=== PATIENT | male | born 1960 | race Caucasian/White ===

== ENCOUNTER 2017-12-27 16:06 | Emergency (ER) | payer OTHER ==
[2017-12-27 16:17] VITALS: BP 129/86
[2017-12-27] MEDS ORDERED: Ibuprofen TAB* 600 MG PO ONE (17:32)
--- NOTE | 2017-12-27 17:48 | UC ---
Arie Hendricks Nilda, scribed for Galina Richardson MD on 12/27/17 at 1727 . Abdominal Pain Male HPI - HPI Summary HPI Summary: This patient is a 57 year old M presenting to [facility] [place] accompanied by with a chief complaint of acute constant severe RLQ abd pain at 3pm that started when he was just finishing a meeting. Pt states the discomfort was intense but has has gradually decreased and is nearly resolved. Pain began after a meeting at 1500. The patient rates the initial pain 7/10 in severity, but it is currently rated 3/10. Symptoms aggravated by nothing and alleviated by walking up stairs and spontaneous resolution. Pt unable to find position of comfort with pain. Patient reports nausea and lower back pain. He denies diaphoresis, pain in penis or testicles, urinary urgency during episode, and hematuria. Pt states he was unable to find a position that alleviated pain. He notes he has not noticed hernia. No analgesi taken Pt notes no pain with BM this morning. He states he passed a little gas earlier. Pt states he ate pasta with asparagus this afternoon. Pt without h/o renal colic - states father had renal colic requiring lithotripsy Patients medication reviewed this visit. - History of Current Complaint Chief Complaint: UCAbdominalPain Stated Complaint: ABD PAIN Time Seen by Provider: 12/27/17 17:12 Hx Obtained From: Patient Onset/Duration: Sudden Onset, Lasting Hours, Still Present Severity Initially: Severe Severity Currently: Mild Pain Intensity: 3 Pain Scale Used: 0-10 Numeric Location: Discrete At: RLQ Aggravating Factor(s): Nothing Alleviating Factor(s): Spontaneous Resolution, Other - walking up stairs Associated Signs And Symptoms: Positive: Other - nausea, and lower back pain. He denies diaphoresis, pain in penis or testicles, urinary urge during episode, and hematuria. - Allergies/Home Medications Allergies/Adverse Reactions: Allergies Allergy/AdvReac Type Severity Reaction Status Date / Time No Known Allergies Allergy Verified 12/27/17 16:16 Home Medications: Home Medications Multivitamin [Multivitamins] 1 cap PO 12/27/17 [History] PMH/Surg Hx/FS Hx/Imm Hx Previously Healthy: Yes - Surgical History Surgical History: Yes Surgery Procedure, Year, and Place: SCLERAL BUCKLE (HAD ORBIT XRAY CLEARED FOR MRI BY RADIOLOGIST)'. Shoulder (rotator cuff) - Family History Known Family History: Positive: Hypertension, Diabetes, Renal Disease - kidney stone - Social History Occupation: Employed Full-time Lives: With Family Alcohol Use: Weekly Substance Use Type: None Smoking Status (MU): Current Some Day Smoker Household Exposure Type: Cigars Review of Systems Constitutional: Negative Skin: Other - negative diaphoresis Gastrointestinal: Abdominal Pain, Nausea Genitourinary: Other - negative pain in penis or testicles, urinary urge during episode, hematuria Musculoskeletal: Other: - lower back pain All Other Systems Reviewed And Are Negative: Yes Physical Exam Triage Information Reviewed: Yes Appearance: Well-Appearing, No Pain Distress, Well-Nourished Vital Signs: Initial Vital Signs Temp 97.9 F 12/27/17 16:13 Pulse 82 12/27/17 16:13 Resp 18 12/27/17 16:13 BP 129/86 12/27/17 16:13 Pulse Ox 98 12/27/17 16:13 Vital Signs Reviewed: Yes Eye Exam: Normal Eyes: Positive: Conjunctiva Clear ENT Exam: Normal ENT: Positive: Normal ENT inspection, Hearing grossly normal, Pharynx normal, TMs normal Dental Exam: Normal Neck exam: Normal Neck: Positive: Supple, Nontender, No Lymphadenopathy Respiratory Exam: Normal Respiratory: Positive: Chest non-tender, Lungs clear, Normal breath sounds, No respiratory distress, No accessory muscle use Cardiovascular Exam: Normal Cardiovascular: Positive: RRR, No Murmur, Pulses Normal Abdomen Description: Positive: No Organomegaly, Soft. Negative: Nontender - very mild diffuse abdominal pain No guarding, no rebound soft +BS No CVA b/l, CVA Tenderness (R), CVA Tenderness (L), Distended, Guarding Musculoskeletal Exam: Normal Musculoskeletal: Positive: Strength Intact, ROM Intact Neurological Exam: Normal Neurological: Positive: Alert Psychological Exam: Normal Psychological: Positive: Normal Response To Family Skin Exam: Normal Diagnostics - Radiology Abd XR Radiology Interpretation Completed By: Radiologist - Abd XR reveals no evidence for acute finding. Dr. Richardson has reviewed this radiology report. Re-Evaluation - Re-Evaluation First Eval Re-Evaluation Time: 18:18 Comment: Reviewed imaging results with pt as well as treatment plan. Abd Pain Male Course/Dx - Course Course Of Treatment: Pt with episode of sudden right LQ pain at 3pm today. Pain was colicky in nature with accompany nausea. No vomiting. No fever, chills. Pain nearly resolved no h.o similar. Pt with stable VS and on concerning exam. Suspect renal colic - pt without hx but father with hx. will check urine and flatplat. motrin. anticipate discharge home withstrainer. hydrate. motrin/apap. f/u with pcp. strict return precautions discussed - Differential Dx/Clinical Impression Provider Diagnoses: abdominal pain, flank pain Discharge - Sign-Out/Discharge Documenting (check all that apply): Discharge - Discharge Plan Condition: Stable Disposition: HOME Patient Education Materials: Acute Abdominal Pain (ED), Flank Pain (ED) Referrals: Anuj Abad MD [Primary Care Provider] - Additional Instructions: The doctor that evaluated you today is not sure the cause of your pain, but as discussed thinks it may likely be related to kidney stones. It is recommended you strain your urine for the next 1-2 days. If you catch a stone, bring it to your doctor for evaluation Stay well hydrated. Drink plenty of non-alcoholic, non-caffinated beverages Okay to take ibuprofen (advil, motrin) 600mg every 6 hours for pain - take with food Contact your doctor to schedule a follow-up appointment this week. If your pain returns, becomes severe, fevers, vomiting, or ANY Other questions or concerns it is recommended you go to the emergency department for futher evaluation and treatment. - Billing Disposition and Condition Condition: STABLE Disposition: HOME The documentation as recorded by the Arie angulo Nilda accurately reflects the service I personally performed and the decisions made by me, Galina Richardson MD.
--- NOTE | 2017-12-27 18:12 | RAD ---
INDICATION: Abdominal pain. COMPARISON: There are no prior studies available for comparison. TECHNIQUE: Supine and upright views of the abdomen were obtained. FINDINGS: The small bowel and colon appear nondistended. No free intraperitoneal air is seen. No abnormal calcifications are seen. IMPRESSION: NO EVIDENCE FOR ACUTE FINDING.
== END 2017-12-27 18:31 | disposition home or self-care (01) ==
LOC: UCEAST 16:06
DX: R10.31 Right lower quadrant pain (principal); M54.5 Low back pain; R11.0 Nausea; Z72.0 Tobacco use
CPT/HCPCS: 74019; 81003; 99212; A9270-GY; G0463

== ENCOUNTER 2019-01-28 10:27 | Emergency (ER) | payer OTHER ==
[2019-01-28 11:14] LABS: ABS Lymphocytes 1.5 10^3/ul (1.0-4.8); ABS Monocytes 0.3 10^3/ul (0-0.8); ABS Neutrophils 2.4 10^3/ul (1.5-7.7); Eosinophil % 0.9 %; Hematocrit 45 % (42-52); Hemoglobin 15.6 g/dL (14.0-18.0); Lymphocyte % 34.7 %; Mean Corpuscular HGB Conc 35 g/dL (31-36); Mean Corpuscular Hemoglobin 31 pg (27-31); Mean Corpuscular Volume 90 fL (80-94); Mean Platelet Volume 8.5 fL (7.4-10.4); Nucleated Red Blood Cells % 0.1; Platelet Count 228 10^3/uL (150-450); Red Blood Count 4.97 10^6 /uL (4.18-5.48); Red Cell Distribution Width 13 % (10.5-15); White Blood Count 4.4 10^3/uL (3.5-10.8)
[2019-01-28 11:33] LABS: Albumin 4.6 g/dL (3.2-5.2); Albumin/Globulin Ratio 1.7 (1-3); BUN/Creatinine Ratio 17.9 (8-20); C Reactive Protein 2.12 mg/L (<8.01); Calcium 9.8 mg/dL (8.6-10.3); EGFR African American 86.2 (>60); EGFR Non-African American 71.3 (>60); Globulin 2.7 g/dL (2-4); Potassium 4.2 mmol/L (3.5-5.0); Total Bilirubin 1.2 mg/dL (0.2-1.0); Total Protein 7.3 g/dL (6.4-8.9)
--- NOTE | 2019-01-28 11:55 | ED ---
Abdominal Pain/Male - HPI Summary HPI Summary: This patient is a 58 year old M presenting to [facility] with a chief complaint of dull aching LLQ abdominal pain with nausea and fatigue for the past week. Pain rated 3/10 upon triage. Patient visited his primary physician who suspects diverticulitis or SBO. He was given flagyl on 01/24/19. Symptoms improved on 01/26 but then returned today. Reports similar symptoms with a previous bout of diverticulitis. Reports frequent urination with increased difficulty. Denies changes to BMs. - History of Current Complaint Chief Complaint: EDAbdPain Stated Complaint: WEAKNESS,LOWER ABD PAIN Time Seen by Provider: 01/28/19 11:44 Hx Obtained From: Patient Onset/Duration: Lasting Days Timing: Constant, Lasting Days Pain Intensity: 3 Pain Scale Used: 0-10 Numeric Location: Discrete At: LLQ Radiates: No Character: Dull Alleviating Factor(s): Nothing Associated Signs And Symptoms: Positive: Urinary Symptoms. Negative: Constipation, Blood in Stool, Diarrhea - Allergies/Home Medications Allergies/Adverse Reactions: Allergies Allergy/AdvReac Type Severity Reaction Status Date / Time No Known Allergies Allergy Verified 12/27/17 16:16 PMH/Surg Hx/FS Hx/Imm Hx Endocrine/Hematology History: Denies: Hx Diabetes Cardiovascular History: Denies: Hx Hypertension, Hx Pacemaker/ICD Respiratory History: Denies: Hx Asthma GI History: Reports: Other GI Disorders - diverticulitis History: Denies: Hx Dialysis, Hx Kidney Stones, Hx Renal Disease Sensory History: Denies: Hx Hearing Aid Psychiatric History: Denies: Hx Panic Disorder - Surgical History Surgery Procedure, Year, and Place: SCLERAL BUCKLE (HAD ORBIT XRAY CLEARED FOR MRI BY RADIOLOGIST)'. Shoulder (rotator cuff) Infectious Disease History: No Infectious Disease History: Denies: Traveled Outside the [place] in Last 30 Days - Family History Known Family History: Positive: Hypertension, Diabetes, Renal Disease - kidney stone - Social History Alcohol Use: Weekly Substance Use Type: Reports: None Smoking Status (MU): Current Some Day Smoker Review of Systems Positive: Fatigue Positive: Abdominal Pain, Nausea. Negative: Diarrhea Positive: frequency, urgency All Other Systems Reviewed And Are Negative: Yes Physical Exam - Summary Physical Exam Summary: Appearance: The patient is well-nourished in no acute distress and in no acute pain. Skin: The skin is warm and dry and skin color reflects adequate perfusion. HEENT: The head is normocephalic and atraumatic. The pupils are equal and reactive. The conjunctivae are clear and without drainage. Nares are patent and without drainage. Mouth reveals moist mucous membranes and the throat is without erythema and exudate. The external ears are intact. The ear canals are patent and without drainage. The tympanic membranes are intact. Neck: The neck is supple with full range of motion and non-tender. There are no carotid bruits. There is no neck vein distension. Respiratory: Chest is non-tender. Lungs are clear to auscultation and breath sounds are symmetrical and equal. Cardiovascular: Heart is regular rate and rhythm. There is no murmur or rub auscultated. There is no peripheral edema and pulses are symmetrical and equal. Abdomen: The abdomen is soft. There is mild LLQ pain. There are normal bowel sounds heard in all four quadrants and there is no organomegaly palpated. Musculoskeletal: There is no back tenderness noted. Extremities are non-tender with full range of motion. There is good capillary refill. There is no peripheral edema or calf tenderness elicited. Neurological: Patient is alert and oriented to person, place and time. The patient has symmetrical motor strength in all four extremities. Cranial nerves are grossly intact. Deep tendon reflexes are symmetrical and equal in all four extremities. Psychiatric: The patient has an appropriate affect and does not exhibit any anxiety or depression Triage Information Reviewed: Yes Vital Signs On Initial Exam: Initial Vitals Temp Pulse Resp BP Pulse Ox 97.8 F 85 18 129/92 96 01/28/19 10:33 01/28/19 10:33 01/28/19 10:33 01/28/19 10:33 01/28/19 10:33 Vital Signs Reviewed: Yes Diagnostics - Vital Signs Vital Signs Temp Pulse Resp BP Pulse Ox 01/28/19 10:33 97.8 F 85 18 129/92 96 - Laboratory Lab Results: Lab Results 01/28/19 01/28/19 01/28/19 Range/Units 11:05 11:05 11:05 WBC 4.4 (3.5-10.8) 10^3/uL RBC 4.97 (4.18-5.48) 10^6 /uL Hgb 15.6 (14.0-18.0) g/dL Hct 45 (42-52) % MCV 90 (80-94) fL MCH 31 (27-31) pg MCHC 35 (31-36) g/dL RDW 13 (10.5-15) % Plt Count 228 (150-450) 10^3/uL MPV 8.5 (7.4-10.4) fL Neut % (Auto) 55.5 % Lymph % (Auto) 34.7 % [place] % (Auto) 8.0 % Eos % (Auto) 0.9 % Baso % (Auto) 0.9 % Absolute Neuts (auto) 2.4 (1.5-7.7) 10^3/ul Absolute Lymphs (auto) 1.5 (1.0-4.8) 10^3/ul Absolute Monos (auto) 0.3 (0-0.8) 10^3/ul Absolute Eos (auto) 0.0 (0-0.6) 10^3/ul Absolute Basos (auto) 0.0 (0-0.2) 10^3/ul Absolute Nucleated RBC 0.0 10^3/ul Nucleated RBC % 0.1 Sodium 136 (135-145) mmol/L Potassium 4.2 (3.5-5.0) mmol/L Chloride 103 (101-111) mmol/L Carbon Dioxide 26 (22-32) mmol/L Anion Gap 7 (2-11) mmol/L BUN 19 (6-24) mg/dL Creatinine 1.06 (0.67-1.17) mg/dL Est GFR ( Amer) 86.2 (>60) Est GFR (Non-Af Amer) 71.3 (>60) BUN/Creatinine Ratio 17.9 (8-20) Glucose 94 (70-100) mg/dL Lactic Acid 1.0 (0.5-2.0) mmol/L Calcium 9.8 (8.6-10.3) mg/dL Total Bilirubin 1.20 H (0.2-1.0) mg/dL AST 72 H (13-39) U/L ALT 98 H (7-52) U/L Alkaline Phosphatase 36 (34-104) U/L C-Reactive Protein 2.12 (<8.01) mg/L Total Protein 7.3 (6.4-8.9) g/dL Albumin 4.6 (3.2-5.2) g/dL Globulin 2.7 (2-4) g/dL Albumin/Globulin Ratio 1.7 (1-3) Lipase 28 (11.0-82.0) U/L Result Diagrams: 01/28/19 11:05 01/28/19 11:05 Lab Statement: Any lab studies that have been ordered have been reviewed, and results considered in the medical decision making process. - CT CT A/P CT Interpretation Completed By: Radiologist Summary of CT Findings: No obstructive uropathy is noted. Enlarged prostate. No hernias are noted. ED Physician has reviewed this report. Abdominal Pain Male Course/Dx - Course Course Of Treatment: Mr. Luke has been battling with left lower quadrant pain for about a week. He was treated with some Flagyl by his PCP. He did seem to get better but then today feels worse again. He had only mild tenderness in the left lower quadrant, was nontoxic in appearance and his vitals were stable. Labs and CT of the abdomen were unremarkable. I recommended continued treatment as he is doing and follow-up with PCP if not improved. - Diagnoses Provider Diagnoses: Abdominal pain Discharge - Sign-Out/Discharge Documenting (check all that apply): Patient Departure - discharge Patient Received Moderate/Deep Sedation with Procedure: No - Discharge Plan Condition: Stable Disposition: HOME Patient Education Materials: Acute Abdominal Pain (ED) Referrals: Anuj Abad MD [Primary Care Provider] - 2 Days Additional Instructions: RETURN TO THE EMERGENCY DEPARTMENT FOR CHANGING OR WORSENING SYMPTOMS. - Billing Disposition and Condition Condition: STABLE Disposition: Home - Attestation Statements Document Initiated by Patience: Yes Documenting Scribe: Margie Green Provider For Whom Patience is Documenting (Include Credential): Silvestre Ospina MD Scribe Attestation: IMargie, scribed for Silvestre Ospina MD on 01/28/19 at 1716. Scribe Documentation Reviewed: Yes Provider Attestation: The documentation as recorded by the Margie angulo accurately reflects the service I personally performed and the decisions made by me, Silvestre Ospina MD Status of Scribe Document: Viewed
[2019-01-28 12:39] LABS: Urine Appearance Clear; Urine Bacteria Absent (Absent); Urine Bilirubin Negative (Negative); Urine Blood Negative (Negative); Urine Color Yellow; Urine Glucose Negative (Negative); Urine Ketones Negative (Negative); Urine Nitrite Negative (Negative); Urine Protein Negative (Negative); Urine Red Blood Cell Trace(0-2/hpf) (Absent); Urine Specific Gravity 1.008 (1.010-1.030); Urine Urobilinogen Negative (Negative); Urine White Blood Cell Trace(0-5/hpf) (Absent)
[2019-01-28 13:49] VITALS: BP 113/37
== END 2019-01-28 13:47 | disposition home or self-care (01) ==
LOC: ED 10:27
DX: R10.32 Left lower quadrant pain (principal); R11.0 Nausea; R53.83 Other fatigue; R35.0 Frequency of micturition; R39.198 Other difficulties with micturition; N40.0 Benign prostatic hyperplasia without lower urinary tract symptoms; Z72.0 Tobacco use
CPT/HCPCS: 36415; 74176; 80053; 81003; 81015; 83605; 83690; 85025; 86140; 87086; 99283

== ENCOUNTER 2019-06-07 20:20 | Emergency (ER) | payer OTHER ==
--- OUTSIDE RECORDS SUMMARY | 2019-06-07 20:26 | XMS REPORT | Continuity of Care Document ---
:1960 External Reference #:[id number] Author Name Shakira Christensen PA-C Address [address] [place] [address] Care Team Providers Name Role Phone Anuj Abad MD Care Team Information [employer] [phone] Problems Active Problems Provider Date Diarrhea Shakira Christensen PA-C Onset: 04/26/2019 Generalized abdominal pain Shakira Christensen PA-C Onset: 04/26/2019 Flatulence, eructation and gas pain Shakira Christensen PA-C Onset: 2018 Social History Type Date Description Comments Sex Unknown Tobacco Use Start: Unknown End: Unknown Patient is a former smoker Smoking Status Reviewed: 04/26/19 Patient is a former smoker Allergies, Adverse Reactions, Alerts Description No Known Drug Allergies Medications Active Medications SIG Qnty Indications Ordering Provider Date Flomax 1 by mouth every Unknown 0.4mg Capsules day History Medications Colyte With Flavor by mouth as 4000ml Jalen Aponte, 02/19/2019 - Packs directed 03/02/2019 240gm Solution Rec Immunizations Description No Information Available Vital Signs Date Vital Result Comment 04/26/2019 8:48am Height 74 inches 6'2" Weight 218.00 lb BMI (Body Mass Index) 28.0 kg/m2 02/19/2019 8:23am Height 74 inches 6'2" Weight 236.00 lb BP Systolic 110 mmHg BP Diastolic 71 mmHg Heart Rate 72 /min BMI (Body Mass Index) 30.3 kg/m2 Results Test Date Facility Test Result H/L Range Note [place] test [place] [facility] [place] SEE RESULT 1 finding Order BELOW Laboratory test 02/22/2019 [facility] [place] SEE RESULT 2 finding BELOW Celiac 2! 02/19/2019 [facility] [place] Immunoglobulin A 168 mg/dL 61 - 356 3 (Iga) Tissue Transglutamianse Iga AB <1.2 U/mL 4 Hepatitis C Antibody 02/19/2019 [facility] [place] Index 0.01 s/c Hepatitis C Antibody Negative Negative Hepatitis [place]NL [place] [place]/19/2019 [facility] [place]atitis A AB Igm Negative Negative 5 Hepatitis B Core AB Igm Nonreactive Nonreactive 6 Hepatitis B Surface Ag Negative Negative 7 Laboratory test finding 02/19/2019 [facility] [place] Inr 0.98 Normal 0.82-1.09 8 Mitochondrial AB AMA M2 Igg <0.1 U 9 Smooth Muscle Antibody Negative Negative 10 Iron & Iron Binding Capacity 02/19/2019 [facility] [place] Iron 97 g/dL Normal 50-212 Unsaturated Iron Binding < 247 g/dL Total Iron Binding Capacity 262 g/dL Normal 250-450 Transferrin 187 mg/dL Low 203-362 % Iron Saturation 37 % Normal 15-55 Laboratory test 02/19/2019 [facility] [place] Alpha 1 Antitrypsin A1a 127 mg/dL 100 - 190 11 finding Anti Nuclear Antibody 0.1 U 12 Ceruloplasmin 27.0 mg/dL 13 Ferritin 265.7 ng/mL Normal 24-336 14 Comp Metabolic Panel 02/19/2019 [facility] [place] Sodium 140 mmol/L Normal 135-145 Potassium 4.9 mmol/L Normal 3.5-5.0 Chloride 103 mmol/L Normal 101-111 Co2 Carbon Dioxide 26 mmol/L Normal 22-32 Anion Gap 11 mmol/L Normal 2-11 Calcium 9.7 mg/dL Normal 8.6-10.3 Albumin 4.6 g/dL Normal 3.2-5.2 Total Bilirubin 1.30 mg/dL High 0.2-1.0 Glucose 95 mg/dL Normal 70-100 Blood Urea Nitrogen 19 mg/dL Normal 6-24 Creatinine 1.08 mg/dL Normal 0.67-1.17 BUN/Creatinine Ratio 17.6 Normal 8-20 Total Protein 7.1 g/dL Normal 6.4-8.9 Globulin 2.5 g/dL Normal 2-4 Albumin/Globulin Ratio 1.8 Normal 1-3 Alkaline Phosphatase 45 U/L Normal 34-104 Alt 44 U/L Normal 7-52 Ast 28 U/L Normal 13-39 Egfr Non- 69.7 >60 Egfr 84.4 >60 15 Xray 01/31/2019 [facility] [place] Pelvic <pending> Xray 01/31/2019 [facility] [place], Abdomen, <pending> Complete (83243) Laboratory test 01/29/2019 [facility] Hepatitis A Igg AB <pending> finding QL Ser Hepatitis B Surf 01/29/2019 [facility] Z#Other <pending> Antigen [address] [address] [phone] Laboratory test 01/29/2019 [facility] Hepatitis B Surf < pending> finding [address] [place] [address] [phone] Hepatitis A Igm QL Serum <pending> Hepatitis C AB Ser QN Eia <pending> Xray 01/28/2019 [facility] [place], Abd & Pelvis W/O Contrast <pending> 1 SEE RESULT BELOW Name: MARCO ANTONIO CROCKETT : [address]: Jalen Aponte DO Acct: [id number] Unit: [id number] AGE: 58 Location: ENDO Re02/22/19 SEX: M Status: DEP REF SPEC: [id number] JULIO C: 02/22/19-[address] [facility] [address]: Jalen Aponte DO REQ: [id number] RECD: 02/22/191399 STATUS: JOLEEN GOODWIN DR: Anuj Abad MD _ ORDERED: LEVEL 4/3 FINAL DIAGNOSIS 1. Small bowel, duodenum, biopsy: -- Small bowel mucosa with normal villous architecture and no significant pathologic abnormality. 2. Distal esophagus, biopsy: -- Gastroesophageal transition zone mucosa with no significant pathologic abnormality. -- No specific features of reflux esophagitis identified. -- No goblet cell/intestinal metaplasia or dysplasia identified. 3. Midesophagus, biopsy: -- Superficial squamous mucosa with no significant pathologic abnormality. -- No evidence of allergic/eosinophilic or reflux esophagitis identified. PRE-OPERATIVE DIAGNOSIS 3) Rule out eosinophilic esophagitis POST-OPERATIVE DIAGNOSIS EGD: esophagus - minimal gastroesophageal junction varices, biopsy; biopsy mid to rule out eosinophilic esophagitis; gastric - normal, biopsy; duodenum - duodenal cyst unknown, biopsy; colonoscopy: to terminal ileum; normal CONTINUED ON NEXT PAGE DEPARTMENT OF PATHOLOGY, [address] [place] [address] David Sotelo M.D. Director [facility] # [id number] RUN DATE: 02/23/19 [facility] LAB LIVE PAGE 2 Patient: SERAKRISTENMARCO ANTONIO [id number] (Continued) GROSS DESCRIPTION (Continued) GROSS DESCRIPTION 1. The specimen is received in formalin labeled, Duodenal Lesion Biopsy, and consists of a 0.3 x 0.2 x 0.1 cm howe-pink irregular soft tissue fragment which is submitted entirely in one cassette. 2. The specimen is received in formalin labeled, Distal Esophagus Biopsy, and consists of two translucent howe-white irregular soft tissue fragments averaging 0.4 x 0.2 x 0.1 cm which are submitted entirely in one cassette. 3. The specimen is received in formalin labeled, Mid Esophagus Biopsy, and consists of two translucent howe-white irregular soft tissue fragments measuring 0.4 x 0.2 x 0.1 cm and 0.6 by up to 0.3 x 0.1 cm which are submitted entirely in one cassette. Signed by and Reported on: David Sotelo MD 1508 END OF REPORT DEPARTMENT OF PATHOLOGY, [address] [place] [address] David Sotelo M.D. Director [facility] # [id number] 2 SEE RESULT BELOW Name: MARCO ANTONIO CROCKETT : [address]: Jalen Aponte DO Acct: [id number] Unit: [id number] AGE: 58 Location: ENDO Re02/22/19 SEX: M Status: REG REF SPEC: [id number] JULIO C: 02/22/19-[address] [facility] [address]: Jalen Aponte DO REQ: [id number] RECD: 02/22/19-1430 STATUS: CARISSA GOODWIN DR: Anuj Abad MD _ SOURCE: GAS ANTRUM SPDESC: ORDERED: Clotest Procedure Result Reported Site Clotest Final 02/23/19- 0850 ML Clotest Negative * ML - Main Lab . END OF REPORT DEPARTMENT OF PATHOLOGY, [address] [place] [address] David Sotelo M.D. Director [facility] # [id number] 3 Test Performed by: [facility] [place] [address] 4 REFERENCE VALUE <4.0 (Negative) Test Performed by: [facility] [place] [address] 5 [id number] Standard intensity warfarin therapeutic range: 2.0-3.0 High intensity warfarin therapeutic range: 2.5-3.5 9 REFERENCE VALUE <0.1 (Negative) Test Performed by: [facility] [place] [address] 10 ADDITIONAL INFORMATION This test was developed and its performance characteristics determined by [facility] in a manner consistent with CLIA requirements. This test has not been cleared or approved by the U.S. Food and Drug Administration. Test Performed by: [facility] [place] [address] 11 Test Performed by: [facility] [place] [address] 12 REFERENCE VALUE <=1.0 (Negative) Test Performed by: [facility] [place] [address] 13 REFERENCE VALUE 19.0 - 31.0 Test Performed by: [address] [address] 14 [id number] 15 Because ethnic data is not always readily available, this report includes an eGFR for both -Americans and non- Americans. The National Kidney Disease Education Program (NKDEP) does not endorse the use of the MDRD equation for patients that are not between the ages of 18 and 70, are , have extremes of body size, muscle mass, or nutritional status, or are non- or non-. According to the National Kidney Foundation, irrespective of diagnosis, the stage of the disease is based on the level of kidney function: Stage Description GFR(mL/min/1.73 m(2)) 1 Kidney damage with normal or decreased GFR 90 2 Kidney damage with mild decrease in GFR 60-89 3 Moderate decrease in GFR 30-59 4 Severe decrease in GFR 15-29 5 Kidney failure <15 (or dialysis) Procedures Date Code Description Status 02/22/2019 17485 Moderate Sedation Services; Same Phys Each Additional 15 Completed Mins 02/22/2019 76591 Moderate Sedation Services; Same Phys Intl 15 Mins; PT >= Completed 5 Years 02/22/2019 39306 Colonoscopy Completed 02/22/2019 46918 EGD+Biopsy Single Or Multiple Completed Medical Devices Description No Information Available Encounters Type Date Location Provider Dx Diagnosis Office Visit 02/19/2019 [facility] Jalen Aponte, R10.32 Left lower 8:[facility]a [facility] DO quadrant pain R74.0 Nonspec elev of levels of transamns & lactic acid dehydrgnse R94.5 Abnormal results of liver function studies K21.9 Gastro-esophageal reflux disease without esophagitis R13.14 Dysphagia, pharyngoesophageal phase Assessments Date Code Description Provider 04/26/2019 R14.0 Abdominal distension (gaseous) Shakira Christensen PA-C 04/26/2019 R10.84 Generalized abdominal pain Shakira Christensen PA-C 04/26/2019 R19.7 Diarrhea, unspecified Shakira Christensen PA-C 02/22/2019 R10.32 Left lower quadrant pain Jalen Fadi, DO 02/22/2019 R13.10 Dysphagia, unspecified Jalen Fadi, DO 02/19/2019 R10.32 Left lower quadrant pain Jalen Fadi, DO 02/19/2019 R74.0 Nonspecific elevation of levels of Jalen Aponte DO transaminase and lactic acid dehydrogenase [LDH] 02/19/2019 R94.5 Abnormal results of liver function Jalen Aponte DO studies 02/19/2019 K21.9 Gastro-esophageal reflux disease without Jalen Fadi, DO esophagitis 02/19/2019 R13.14 Dysphagia, pharyngoesophageal phase Jalen Aponte DO Plan of Treatment Future Appointment(s):08/27/2019 8:00 am - Jalen Aponte DO at [facility]04/26/2019 - BARBRA Cronin- CR14.0 Abdominal distension (gaseous)R10.84 Generalized abdominal painR19.7 Diarrhea, unspecified Functional Status Description No Information Available Mental Status Description No Information Available Referrals Description No Information Available
[2019-06-07] MEDS ORDERED: Tetan/Diph/Pertus SYR(Tdap)* 0.5 ML SYR(BOOSTRIX) use SYR IM ONE (20:29)
[2019-06-07 20:37] VITALS: BP 124/80
[2019-06-07] MEDS ORDERED: Silver Nitrate/Potassium Nitr* 1 EA STICK TOPICAL ONE ×2 (20:44→21:06)
--- NOTE | 2019-06-07 21:10 | UC ---
Skin Complaint HPI - HPI Summary HPI Summary: Patient is a 58yo male presenting with left index fingertip avulsion that happened 1 hour ago after cutting his finger with a knife while cutting peppers. Notes some pain. He came in because he could not get the bleeding to stop. Denies taking any blood thinners. Denies decreased ROM or sensation. Patient is unsure if his tetanus is up to date and would like a booster today. - History of Current Complaint Chief Complaint: UCLaceration Stated Complaint: LEFT INDEX FINGER LAC Hx Obtained From: Patient Onset Severity: Mild Current Severity: Mild Pain Intensity: 4 Pain Scale Used: 0-10 Numeric - Allergy/Home Medications Allergies/Adverse Reactions: Allergies Allergy/AdvReac Type Severity Reaction Status Date / Time No Known Allergies Allergy Verified 06/07/19 20:37 PMH/Surg Hx/FS Hx/Imm Hx Previously Healthy: Yes - Surgical History Surgical History: Yes Surgery Procedure, Year, and Place: SCLERAL BUCKLE (HAD ORBIT XRAY CLEARED FOR MRI BY RADIOLOGIST)'. Shoulder (rotator cuff) RIGHT - Family History Known Family History: Positive: Hypertension, Diabetes, Renal Disease - kidney stone, Non-Contributory - Social History Alcohol Use: Weekly Substance Use Type: None Smoking Status (MU): Former Smoker Household Exposure Type: Cigars Review of Systems All Other Systems Reviewed And Are Negative: No Constitutional: Positive: Negative Cardiovascular: Positive: Negative Gastrointestinal: Positive: Negative Motor: Positive: Negative. Negative: Decreased ROM, Weakness Neurovascular: Positive: Negative. Negative: Decreased Sensation, Decreased Pulses Musculoskeletal: Positive: Negative. Negative: Arthralgia, Decreased ROM, Edema Neurological: Positive: Negative. Negative: Paresthesia, Numbness Psychological: Positive: Negative Physical Exam Triage Information Reviewed: Yes Appearance: Well-Appearing, No Pain Distress, Well-Nourished Vital Signs: Initial Vital Signs Temp 98 F 06/07/19 20:34 Pulse 73 06/07/19 20:34 Resp 16 06/07/19 20:34 BP 124/80 06/07/19 20:34 Pulse Ox 100 06/07/19 20:34 Vital Signs Reviewed: Yes Eyes: Positive: Conjunctiva Clear ENT: Positive: Hearing grossly normal Neck: Positive: Supple Respiratory: Positive: No respiratory distress Cardiovascular: Positive: Pulses Normal, Brisk Capillary Refill Musculoskeletal Exam: Normal Musculoskeletal: Positive: Strength Intact, ROM Intact, No Edema Neurological: Positive: Alert Psychological: Positive: Age Appropriate Behavior Skin: Positive: Other - small superficial avulsion of left index fingertip invlolving the tip of fingernail. bleeding noted. Course/Dx - Course Course Of Treatment: Initially tried to cauterize the fingertip avulsion with silver nitrate. This worked until pressure was taken off the proximal finger and it began to bleed again. Reapplied pressure and then applied surgicel. Then applied a dressing over it and had the patient hold his hand above his head for ten minutes. The bleeding stopped. Patient was instructed to keep the wound clean and dry with the dressing intact for the first 24-48 hours. He may take over the counter pain medications as directed for pain relief. I instructed him to return or go to the emergency department if he notices any redness, swelling, fluid drainage , fever, or nausea and vomiting. Patient voiced understanding and agreed to the treatment plan. - Diagnoses Provider Diagnosis: Avulsion of fingertip Discharge ED - Sign-Out/Discharge Documenting (check all that apply): Patient Departure All imaging exams completed and their final reports reviewed: No Studies - Discharge Plan Condition: Stable Disposition: HOME Patient Education Materials: Skin Avulsion (ED) Referrals: Anuj Abad MD [Primary Care Provider] - If Needed Additional Instructions: As discussed, keep your wound clean and dry with the dressing intact for the first 24-48 hours. You may take over the counter pain medications as directed for pain relief. Return or go to the emergency department if you notice any redness, swelling, fluid drainage, fever, or nausea and vomiting. - Billing Disposition and Condition Condition: STABLE Disposition: Home
== END 2019-06-07 21:31 | disposition home or self-care (01) ==
LOC: UCEAST 20:20
DX: S61.211A Laceration without foreign body of left index finger without damage to nail, initial encounter (principal); W26.0XXA Contact with knife, initial encounter; Y93.G1 Activity, food preparation and clean up; Y92.9 Unspecified place or not applicable; Z87.891 Personal history of nicotine dependence
CPT/HCPCS: 90471; 90715; 99213; A9270-GY; G0463